=== PATIENT | female | born 1930 | race Caucasian/White ===

== ENCOUNTER 2016-12-19 08:31 | Outpatient (CLI) | payer MEDICARE ==
[2016-12-19 12:27] LABS: #Basophils 0.1 thou/uL (0.0-0.2); #Eosinphils 0.1 thou/uL (0.0-0.7); #Lymphocytes 1.5 thou/uL (1.20-3.40); #Monocytes 0.6 thou/uL (0.11-0.59); #Neutrophils 3.1 thou/uL (1.40-6.50); %Basophils 1.9 % (0.0-1.0); %Eosinophils 2.7 % (0.0-10.0); %Neutrophils 56.4 % (42.0-75.0); Hemoglobin 14.9 g/dL (12.0-16.0); Mean Corpuscular HGB CONC 33.2 g/dL (32.0-36.0); Mean Corpuscular Hemoglobin 30.5 pg (27.0-31.0); Mean Corpuscular Volume 91.9 fl (81.0-99.0); Mean Platelet Volume 8.5 fL (7.4-10.4); Platelet Count 211 thou/uL (130-400); RBC Distribution Width 12.1 % (11.5-14.5); Red Blood Cell (RBC) Count 4.86 mill/uL (4.20-5.40); White Blood Cell (WBC) Count 5.5 thou/uL (4.8-10.8)
[2016-12-19 12:43] LABS: Hemoglobin A1c 4.9 % (4.0-6.0)
[2016-12-19 13:04] LABS: ALT (SGPT) 24 U/L (0-55); AST (SGOT) 27 U/L (5-34); Albumin 3.9 g/dL (3.4-4.8); Alkaline Phosphatase 87 U/L (40-150); Anion Gap 15 mmol/L (10-20); BUN (Urea Nitrogen) 11 mg/dL (9.8-20.1); Bilirubin, Direct 0.4 mg/dL (0.1-0.3); Bilirubin, Total 1.1 mg/dL (0.2-1.2); Calc. Creatinine Clearance 0 mL/min (70-130); Calcium 9.3 mg/dL (7.8-10.44); Carbon Dioxide 24 mmol/L (23-31); Cardiac Risk 3.7 (Less than 4.5); Chloride 98 mmol/L (98-107); Cholesterol 202 mg/dL (< 200 Desired); Estimated GFR-MDRD 64; Glucose 92 mg/dL (83-110); HDL Cholesterol 55 mg/dL (>60 Neg Risk); LDL Cholesterol, Calculated 113 mg/dL; Potassium 5.1 mmol/L (3.5-5.1); Protein, Total 6.2 g/dL (5.8-8.1); Sodium 132 mmol/L (136-145); Triglycerides 168 mg/dL (Less than 150)
== END 2016-12-19 08:32 ==
LOC: NAVSJIPCSP 08:31
PROVIDERS: ATTEND Family Medicine
DX: G30.9 Alzheimer's disease, unspecified (principal); N28.9 Disorder of kidney and ureter, unspecified; I10 Essential (primary) hypertension; M19.90 Unspecified osteoarthritis, unspecified site; N39.3 Stress incontinence (female) (male); G89.29 Other chronic pain; Z79.899 Other long term (current) drug therapy
CPT/HCPCS: 36415; 80048; 80061; 80076; 83036; 84443; 85025

== ENCOUNTER 2017-05-08 09:36 | Outpatient (CLI) | payer MEDICARE ==
[2017-05-08 12:32] LABS: #Basophils 0.1 thou/uL (0.0-0.2); #Eosinphils 0.3 thou/uL (0.0-0.7); #Lymphocytes 1.9 thou/uL (1.20-3.40); #Monocytes 0.7 thou/uL (0.11-0.59); #Neutrophils 4.1 thou/uL (1.40-6.50); %Basophils 1.7 % (0.0-1.0); %Eosinophils 4.9 % (0.0-10.0); %Lymphocytes 25.8 % (21.0-51.0); %Monocytes 9.8 % (0.0-10.0); %Neutrophils 57.8 % (42.0-75.0); Hemoglobin 14.6 g/dL (12.0-16.0); Mean Corpuscular HGB CONC 32.3 g/dL (32.0-36.0); Mean Corpuscular Hemoglobin 29.8 pg (27.0-31.0); Mean Corpuscular Volume 92.2 fl (81.0-99.0); Mean Platelet Volume 8.5 fL (7.4-10.4); Platelet Count 216 thou/uL (130-400); RBC Distribution Width 11.7 % (11.5-14.5); Red Blood Cell (RBC) Count 4.91 mill/uL (4.20-5.40); White Blood Cell (WBC) Count 7.2 thou/uL (4.8-10.8)
[2017-05-08 12:35] LABS: ALT (SGPT) 22 U/L (8-55); AST (SGOT) 24 U/L (5-34); Albumin 3.6 g/dL (3.4-4.8); Alkaline Phosphatase 87 U/L (40-150); Anion Gap 16 mmol/L (10-20); BUN (Urea Nitrogen) 6 mg/dL (9.8-20.1); Bilirubin, Direct 0.4 mg/dL (0.1-0.3); Bilirubin, Total 1.1 mg/dL (0.2-1.2); Calc. Creatinine Clearance 0 mL/min (70-130); Calcium 8.9 mg/dL (7.8-10.44); Carbon Dioxide 22 mmol/L (23-31); Cardiac Risk 3.4 (Less than 4.5); Chloride 96 mmol/L (98-107); Cholesterol 193 mg/dl (< 200 Desired); Estimated GFR-MDRD 63; Glucose 142 mg/dL (83-110); HDL Cholesterol 57 mg/dL (>60 Neg Risk); LDL Cholesterol, Calculated 109 mg/dL; Potassium 4.7 mmol/L (3.5-5.1); Protein, Total 5.9 g/dL (6.0-8.3); Sodium 129 mmol/L (136-145); Triglycerides 136 mg/dL (Less than 150)
[2017-05-08 13:57] LABS: Hemoglobin A1c 4.9 % (4.0-6.0)
== END 2017-05-08 09:37 | disposition home or self-care (01) ==
LOC: NAVSJIPCSP 09:36
PROVIDERS: ATTEND Family Medicine
DX: C44.519 Basal cell carcinoma of skin of other part of trunk (principal); I10 Essential (primary) hypertension; M19.90 Unspecified osteoarthritis, unspecified site; N28.9 Disorder of kidney and ureter, unspecified; G30.9 Alzheimer's disease, unspecified; N39.3 Stress incontinence (female) (male); G89.29 Other chronic pain; Z79.899 Other long term (current) drug therapy
CPT/HCPCS: 36415; 80048; 80061; 80076; 83036; 84443; 85025

== ENCOUNTER 2020-07-13 12:28 | Inpatient (IN) | payer MEDICARE ==
[2020-07-13] MEDS ORDERED: Artificial Tear Sol 15 ML BOT EA EYE PRN (12:55)
[2020-07-13] MEDS ORDERED: Acetaminophen 500 MG TAB PO PRN (12:55)
[2020-07-13] MEDS ORDERED: Calcium Carbonate 500 MG ChewTAB PO PRN (12:55)
[2020-07-13] MEDS ORDERED: Senokot S 8.6-50 MG TAB PO PRN (12:55)
[2020-07-13] MEDS ORDERED: Sodium Chloride 0.65% Nasal 44 ML BOT EA NARE PRN (12:55)
[2020-07-13] MEDS ORDERED: Loperamide HCl 2 MG CAP PO PRN (12:55)
[2020-07-13] MEDS ORDERED: Eucerin (Mineral Oil/Petrolatum,White) 30 gm Jar TOP PRN (12:55)
[2020-07-13] MEDS ORDERED: Cepastat Lozenges 1 LOZ PO PRN (12:55)
[2020-07-13] MEDS: Acetaminophen 500 MG TAB PO PRN (13:18)
[2020-07-13] MEDS ORDERED: hydrALAZINE 20 MG/ML VIAL SLOW IVP PRN (13:37)
[2020-07-13] MEDS ORDERED: FLU VACC QS2020-21(65YR UP)/PF 240 MCG/0.7 ML SYRINGE IM ONE (14:00)
[2020-07-13] MEDS: Carvedilol 3.125 MG TAB PO SCH (17:19)
--- NOTE | 2020-07-13 17:49 | HP ---
HISTORY OF PRESENT ILLNESS: This is an 89-year-old female, who originally presented to [facility] for chief complaint of generalized weakness and fall. Daughter brought her in. The patient does have a history of dementia for past couple of years. The patient was diagnosed there with a UTI and atrial fibrillation. The patient got an echo, which showed atrial fibrillation as well. The patient had UA, which showed leukocytes, wbc's, 2+ bacteria. The patient was started on IV Rocephin. The patient was also noted to have an AMY assumed to be prerenal azotemia. The patient was started on fluids. Overall, the patient's lab work improved from an initial white cell count of 16.9, down to 7.7 over the course of 5 days. However, urine culture was not taken at that time, so susceptibilities could not be determined. 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 As far as her azotemia, the patient's creatinine was originally 1.25 and trended down to 0.64, GFR initially 40 and trended up to 87. This is more like the patient's baseline. Of note, the patient did have a low albumin at 2.9 on previous stay. The patient participated well in physical therapy at previous hospital; however, is requiring additional physical therapy to become strong enough to discharge home safely. The patient was transferred here for PT and OT services. Of note, the patient's blood pressure was elevated up to 188/76 at previous hospital stay and the patient was started on amlodipine 10 mg. REVIEW OF SYSTEMS: Limited due to dementia. However, the patient did report neck and left shoulder pain. Shoulder pain is a posterior pain that was a dull achy pain. Denies any headache, chest pain, shortness of breath, palpitations, nausea, vomiting, abdominal pain, diarrhea, constipation, fever, or chills. MEDICATIONS LIST: 1. Coreg 3.125 orally b.i.d. with meals. 2. Aspirin 81 mg daily. 3. Amlodipine 10 mg daily. 4. Trospium 20 mg b.i.d. 5. Calcium carbonate 500 mg b.i.d. 6. Donepezil 10 mg at bedtime. 7. Solifenacin succinate 10 mg daily. 8. Memantine 10 mg at bedtime. PAST MEDICAL HISTORY: Per daughter at bedside, high blood pressure, dementia, osteoarthritis. PAST SURGICAL HISTORY: Cholecystectomy. FAMILY HISTORY: Noncontributory. SOCIAL HISTORY: Daughter denies that the patient ever smoked tobacco, alcohol abuse, or drug abuse. The patient lives with her family and uses a walker for ambulation. PHYSICAL EXAMINATION: GENERAL: Well-appearing 89-year-old female, in mild distress from shoulder pain. The patient is in no acute respiratory distress. NECK: Tender to palpation on paraspinal muscles on the left side. Trapezius tenderness as well. No point spinal tenderness. No fracture or crepitus felt. No erythema or warmth. No thyromegaly. HEENT: PERRLA. Normocephalic, atraumatic. Nose, no discharge. Pharynx, no erythema or exudate. Mouth, no buccal ulcers. HEART: Regular rate and rhythm. No murmurs, gallops, or rubs. No chest wall tenderness. RESPIRATORY: Clear to auscultation bilaterally. No wheezing. EXTREMITIES: Generalized weakness. Manager [employer] strength is approximately 3/5, but biceps flexion is approximately 2/5. Hip flexion is 2/5. Shoulder is tender to palpation on posterior aspect. No erythema or warmth. No swelling in the joint. No obvious fracture. No crepitus on palpation. SKIN: No obvious bruising seen. NEUROLOGIC: Alert to self only. A and O x1. ASSESSMENT: 1. Resolving acute kidney injury. 2. Resolving azotemia. 3. Weakness secondary to acute kidney injury. 4. Hypertension. 5. Dementia. 6. Overactive bladder. PLAN: 1. Admit for PT and OT services. We will continue to monitor the patient's renal function with CMPs and adjust hydration as needed. We will not start an IV at this time. We will continue to encourage hydration with the patient. We will obtain UA and urine culture here to assess for resolution of urinary tract infection. 2. Continue the patient's amlodipine and follow her blood pressure. 3. Regular diet. 4. Continue the patient's donepezil and memantine. Dementia precaution is in place including frequent reorientation. Avoid any restraints. We will consider adding on Zyprexa as needed for agitation, but will need to discuss risk of all-cause mortality with the patient's family before initiating this treatment. 5. Fall precautions. 6. CBC, CMP to monitor for any changes in lab work. 7. The patient with a regular rhythm at this time. We will consider getting an EKG if the patient could go back into RVR. Continue Coreg 3.125 b.i.d. 8. Case Management consult for discharge planning. 9. The patient was started on antibiotics for UTI on July 07. We will continue this until July 17 for a total of 10 days of treatment. We will start the patient on Bactrim here and follow up with urine culture. Job ID: [id number] [facility]
[2020-07-13 18:38] LABS: Bilirubin Negative (Negative); Blood, Urine Negative (Negative); Clarity Clear (Clear); Glucose, Urine (Dipstick) Negative (Negative); Ketone, Urine Negative (Negative); Leukocyte Negative (Negative); Nitrite Negative (Negative); Protein, Urine (Dipstick) Negative (Neg-Trace); Specific Gravity, Urine 1.025 (1.005-1.030); pH, Urine 6.5 (5.0-9.0)
[2020-07-13 19:08] LABS: Bacteria/HPF None Seen HPF (None Seen); RBC/HPF None Seen HPF (0-3); WBC/HPF None Seen HPF (0-3)
[2020-07-13] MEDS: Famotidine 20 MG TAB PO SCH (20:39)
[2020-07-13] MEDS: Trospium 20 MG TAB PO SCH (20:39)
[2020-07-13] MEDS: Donepezil HCl 10 MG TAB PO SCH (20:39)
[2020-07-13] MEDS: Lisinopril 20 MG TAB PO SCH (20:40)
[2020-07-13] MEDS: Amlodipine 5 MG TAB PO SCH (20:41)
[2020-07-13] MEDS ORDERED: Cephalexin 500 MG CAP PO SCH (21:30)
[2020-07-14 05:56] LABS: ALT (SGPT) 25 U/L (8-55); AST (SGOT) 22 U/L (5-34); Albumin 2.6 g/dL (3.4-4.8); Alkaline Phosphatase 81 U/L (40-110); Anion Gap 11 mmol/L (10-20); BUN (Urea Nitrogen) 15 mg/dL (9.8-20.1); Band 3 % (5-11); Calc. Creatinine Clearance 93 mL/min (70-130); Calcium 8.2 mg/dL (7.8-10.44); Carbon Dioxide 24 mmol/L (23-31); Chloride 102 mmol/L (98-107); Eosinophils 1 % (0-10); Globulin 2.4 g/dL (2.4-3.5); Glucose 94 mg/dL (83-110); Lymphocytes 20 % (21-51); MDiff Complete? YES; Mean Corpuscular HGB CONC 33.4 g/dL (32.0-36.0); Mean Corpuscular Hemoglobin 31.1 pg (27.0-31.0); Mean Corpuscular Volume 93.3 fL (78.0-98.0); Mean Platelet Volume 8.6 fL (7.4-10.4); Metamyelocyte 4 % (0-0); Monocytes 4 % (0-10); Neutrophil 68 % (42-75); Platelet Count 165 thou/uL (130-400); Platelet Morphology Comment Appears Adequate; Potassium 3.5 mmol/L (3.5-5.1); RBC Distribution Width 11.6 % (11.5-14.5); RBC Morphology Normal; Red Blood Cell (RBC) Count 4.49 mill/uL (4.20-5.40); Sodium 133 mmol/L (136-145); White Blood Cell (WBC) Count 8.2 thou/uL (4.8-10.8)
[2020-07-14] MEDS: Famotidine 20 MG TAB PO SCH ×2 (08:06→20:47)
[2020-07-14] MEDS: Cephalexin 500 MG CAP PO SCH ×2 (08:07→20:46)
[2020-07-14] MEDS: Amlodipine 5 MG TAB PO SCH ×2 (08:07→20:46)
[2020-07-14] MEDS: Aspirin 81 mg Enteric Coated Tablet PO SCH (08:07)
[2020-07-14] MEDS: Lisinopril 20 MG TAB PO SCH ×2 (08:07→20:46)
[2020-07-14] MEDS: Trospium 20 MG TAB PO SCH ×2 (08:07→20:47)
[2020-07-14] MEDS: Carvedilol 3.125 MG TAB PO SCH ×2 (08:10→17:22)
[2020-07-14] MEDS ORDERED: Non-Formulary Item 1 EACH (Solifenacin Succinate [Vesicare] 10 MG Tab) PO SCH (09:00)
[2020-07-14] MEDS: Acetaminophen 500 MG TAB PO PRN (09:57)
--- NOTE | 2020-07-14 14:24 | PRG ---
DATE OF SERVICE: 07/14/2020 SUBJECTIVE: An 89-year-old female, who originally presented to [facility] for a chief complaint of generalized weakness and fall. Patient was diagnosed UTI. The patient also had AMY. She recovered from this, but still required PT/OT services. Patient was transferred to [facility] for continued PT and OT services. Patient is doing well today. However, nursing staff has noticed a rash under her right breast and her groin as well as an area of skin shear on her back approximately 1 cm in diameter. The patient denies any pain in her neck or her shoulder. She is lying in bed comfortably in no acute distress. REVIEW OF SYSTEMS: Limited due to her dementia. However, patient denies any fever, cough, congestion, chest pain, abdominal pain, nausea, vomiting, diarrhea. OBJECTIVE: VITAL SINGS: Pulse rate 56, blood pressure 157/83, oxygen saturation 96% on room air, and temperature 98.4. GENERAL: Well appearing, obese, 89-year-old female, in no acute distress, lying in bed. HEENT: PERRLA. Normocephalic and atraumatic. HEART: Regular rate and rhythm. No murmurs, gallops, or rubs. No chest pain. No chest wall tenderness. RESPIRATORY: Clear to auscultation bilaterally. No wheezes. SKIN: Erythematous patch seen under right breast and in the intertriginous folds. Electrical Assembly Supervisor was present during exam on patient's back on the right side in an approximately 1 cm abrasion, well healing. No bleeding, no erythema, no discharge. On the right heel is similar abrasion with no bleeding, erythema, or discharge. Alert to self only. LABORATORY DATA: Labs today, white cell 8.2, hemoglobin 14.9, hematocrit 42, platelets are 165. Sodium 133, potassium 3.5, BUN 15, creatinine 0.67, GFR of 83, glucose 94, calcium 8.2, AST 22, ALT 25, albumin low at 2.6. Urinalysis unremarkable. Urine wbc's none, leukocyte esterase none, bacteria none, blood none, nitrites none. ASSESSMENT: 1. Resolving acute kidney injury. 2. Resolving azotemia. 3. Weakness secondary to acute kidney injury and urinary tract infection. 4. Hypertension. 5. Dementia. 6. Overactive bladder. 7. Intertrigo. PLAN: 1. Continue PT and OT services. 2. Start nystatin powder for fungal infection under breast. 3. Continue patient's oral antihypertensives. Continue to monitor blood pressure. Continue p.r.n. antihypertensives. 4. Regular diet. 5. Dementia precautions. 6. Fall precautions. 7. Continue routine lab work. 8. Continue to monitor pulse for RVR. 9. Continue discharge planning with home sitter versus longterm. 10. Continue antibiotics for urinary tract infection at this time for completion, we will continue with the patient's Keflex. 11. Wound care consult for abrasion on back and foot. Job ID: [id number] [facility]
[2020-07-14] MEDS: Nystatin Powder 15 GM BOT TOP PRN (14:56)
[2020-07-14] MEDS: Donepezil HCl 10 MG TAB PO SCH (20:46)
[2020-07-15] MEDS: Aspirin 81 mg Enteric Coated Tablet PO SCH (08:03)
[2020-07-15] MEDS: Famotidine 20 MG TAB PO SCH ×2 (08:03→20:35)
[2020-07-15] MEDS: Cephalexin 500 MG CAP PO SCH ×2 (08:03→20:35)
[2020-07-15] MEDS: Amlodipine 5 MG TAB PO SCH ×2 (08:04→20:35)
[2020-07-15] MEDS: Trospium 20 MG TAB PO SCH ×2 (08:04→20:35)
[2020-07-15] MEDS: Lisinopril 20 MG TAB PO SCH ×2 (08:05→20:35)
[2020-07-15] MEDS: Carvedilol 3.125 MG TAB PO SCH ×2 (08:06→17:16)
[2020-07-15] MEDS: Acetaminophen 500 MG TAB PO PRN (09:01)
--- NOTE | 2020-07-15 14:31 | PRG ---
DATE OF SERVICE: 07/15/2020 SUBJECTIVE: This is an 89-year-old female who recently presented to [facility] for chief complaint of generalized weakness and fall. Patient was diagnosed with UTI and also AMY. Patient recovered from this but still required PT and OT services and was transferred here to [facility] for continued services. The patient doing well today. Nursing staff has not noticed any new rashes on the patient. Wound Care came and assessed the patient and gave orders for routine wound care that can be performed by nursing staff. The patient denies any pain in her neck or her shoulder today. She is lying comfortably in bed, in no acute distress. Daughter is at bedside. REVIEW OF SYSTEMS: Limited due to her dementia; however, patient denies any fever, cough, congestion, chest pain, abdominal pain, nausea, vomiting, diarrhea. OBJECTIVE: VITAL SIGNS: Temperature 97.6, pulse 56, blood pressure 142/67 to 166/74, respiratory rate 18, O2 96 on room air. LABORATORY DATA: No new today. Urine culture, no growth today x12 hours. ASSESSMENT: 1. Resolving acute kidney injury. 2. Resolving azotemia. 3. Weakness secondary to acute kidney injury and urinary tract infection. 4. Hypertension. 5. Dementia. 6. Overactive bladder. 7. Intertrigo. 8. Urinary tract infection, resolved. PLAN: 1. Continue PT and OT services. 2. Continue nystatin powder. 3. We will increase patient's Norvasc to 10 b.i.d. due to her elevated blood pressure today. Continue p.r.n. antihypertensives. 4. Continue regular diet. 5. The patient is at a high risk for falls, we will continue SCDs. The patient also had a history of AFib in the hospital; however, HAS-BLED 2 so will hold off on anticoagulation due to fall risk and dementia history. 6. Fall precautions. 7. Continue routine lab work. 8. Continue discharge planning: home sitter versus longterm. 9. Continue antibiotics for UTI. 10. Continue routine wound care for back and foot. Job ID: [id number] [facility]
[2020-07-15] MEDS: Donepezil HCl 10 MG TAB PO SCH (20:34)
--- NOTE | 2020-07-16 09:02 | PRG ---
DATE OF SERVICE: 07/16/2020 SUBJECTIVE: The patient doing well. Nursing has no complaints. The patient has no complaints this morning. The patient is participating well in physical therapy. REVIEW OF SYSTEMS: Limited due to her dementia; however, the patient denies any fever, cough, congestion, chest pain, abdominal pain, nausea, vomiting, diarrhea, neck pain, or shoulder pain. OBJECTIVE: VITAL SIGNS: Temperature 96.5, pulse 55, blood pressure 165/74, respiratory rate 20, and 96% on room air. GENERAL: Well-appearing obese female, lying in bed, in no acute distress. HEENT: Pharynx clear. Mouth, no buccal ulcers. HEART: Regular rate and rhythm. No murmurs, gallops, or rubs. RESPIRATORY: Clear to auscultation bilaterally. No wheezes. EXTREMITIES: Continues to be weak; however, is improving. SKIN: Previous intertriginous rash improving as well as rash under her right breast, improving. LABORATORY DATA: No new labs today. Urine culture, no growth today x36. ASSESSMENT: 1. Resolved acute kidney injury. 2. Resolved azotemia. 3. Weakness secondary to acute kidney injury and urinary tract infection. 4. Urinary tract infection, resolved. 5. Hypertension. 6. Dementia. 7. Overactive bladder. 8. Intertrigo. PLAN: 1. Continue PT and OT Services. 2. Continue nystatin powder. 3. The patient's BP is still elevated. Therefore, we will continue current medications and add on spironolactone 25 mg b.i.d. and continue p.r.n. antihypertensives. 4. The patient is a high risk for falls. We will continue SCDs. The patient has a HAS-BLED score of 2, so we will hold off on anticoagulation at this time. We will need to discuss with the patient and family as well. 5. Fall precautions. 6. Continue routine lab work with CBC and BMP in the morning. 7. Continue discharge planning. 8. Continue antibiotics for UTI. We will consider stopping this as we have no growth today x36 hours. Job ID: [id number]
[2020-07-16] MEDS: Famotidine 20 MG TAB PO SCH ×2 (09:03→20:08)
[2020-07-16] MEDS: Lisinopril 20 MG TAB PO SCH ×2 (09:03→20:09)
[2020-07-16] MEDS: Carvedilol 3.125 MG TAB PO SCH ×2 (09:03→17:30)
[2020-07-16] MEDS: Amlodipine 5 MG TAB PO SCH ×2 (09:03→20:08)
[2020-07-16] MEDS: Aspirin 81 mg Enteric Coated Tablet PO SCH (09:04)
[2020-07-16] MEDS: Trospium 20 MG TAB PO SCH ×2 (09:04→20:09)
[2020-07-16] MEDS: Cephalexin 500 MG CAP PO SCH ×2 (09:04→20:08)
[2020-07-16] MEDS ORDERED: Spironolactone 25 MG TAB PO SCH (09:15)
[2020-07-16] MEDS: Spironolactone 25 MG TAB PO SCH ×2 (09:19→17:30)
[2020-07-16] MEDS: Donepezil HCl 10 MG TAB PO SCH (20:08)
[2020-07-16] MEDS: Acetaminophen 500 MG TAB PO PRN (20:15)
[2020-07-17 07:37] LABS: #Basophils 0.1 thou/uL (0.0-0.2); #Eosinphils 0.3 thou/uL (0.0-0.7); #Lymphocytes 1.8 thou/uL (1.20-3.40); #Monocytes 0.8 thou/uL (0.11-0.59); #Neutrophils 2.8 thou/uL (1.40-6.50); %Basophils 1.6 % (0.0-1.0); %Lymphocytes 30.5 % (21.0-51.0); %Monocytes 14.1 % (0.0-10.0); %Neutrophils 47.8 % (42.0-75.0); Hemoglobin 13.8 g/dL (12.0-16.0); Mean Corpuscular HGB CONC 33.4 g/dL (32.0-36.0); Mean Corpuscular Hemoglobin 30.9 pg (27.0-31.0); Mean Corpuscular Volume 92.5 fL (78.0-98.0); Mean Platelet Volume 7.7 fL (7.4-10.4); Platelet Count 260 thou/uL (130-400); RBC Distribution Width 11.4 % (11.5-14.5); Red Blood Cell (RBC) Count 4.47 mill/uL (4.20-5.40); White Blood Cell (WBC) Count 5.8 thou/uL (4.8-10.8)
[2020-07-17 08:33] LABS: Anion Gap 13 mmol/L (10-20); BUN (Urea Nitrogen) 14 mg/dL (9.8-20.1); Calc. Creatinine Clearance 84 mL/min (70-130); Calcium 8.4 mg/dL (7.8-10.44); Carbon Dioxide 22 mmol/L (23-31); Chloride 105 mmol/L (98-107); Sodium 136 mmol/L (136-145)
[2020-07-17] MEDS: Trospium 20 MG TAB PO SCH ×2 (08:44→21:10)
[2020-07-17] MEDS: Cephalexin 500 MG CAP PO SCH ×2 (08:44→21:10)
[2020-07-17] MEDS: Aspirin 81 mg Enteric Coated Tablet PO SCH (08:44)
[2020-07-17] MEDS: Spironolactone 25 MG TAB PO SCH ×2 (08:44→18:11)
[2020-07-17] MEDS: Famotidine 20 MG TAB PO SCH ×2 (08:45→21:09)
[2020-07-17] MEDS: Carvedilol 3.125 MG TAB PO SCH ×2 (08:45→18:11)
[2020-07-17] MEDS: Amlodipine 5 MG TAB PO SCH ×2 (08:45→21:09)
[2020-07-17] MEDS: Lisinopril 20 MG TAB PO SCH ×2 (08:45→21:10)
[2020-07-17 08:48] LABS: Glucose 87 mg/dL (83-110)
--- NOTE | 2020-07-17 09:43 | PRG ---
DATE OF SERVICE: 07/17/2020 SUBJECTIVE: The patient is doing well today. No concerns from the nursing staff per patient. REVIEW OF SYSTEMS: Limited due to dementia, but denies any headache, chest pain, abdominal pain, nausea, vomiting, diarrhea, dysuria. OBJECTIVE: VITAL SIGNS: Temperature 98, pulse 57, blood pressure 149/69, respiratory rate 20, O2 saturations 98% on room air. GENERAL: Well-appearing, obese 89-year-old female in no acute distress, lying in bed. HEART: Regular rate and rhythm. No murmurs, gallops, or rubs. RESPIRATORY: Rate clear to auscultation bilaterally. No wheezes. ABDOMEN: Soft, nontender to palpation. Bowel sounds present in all four quadrants. EXTREMITIES: Generalized weakness, but improving from previous. LABORATORY DATA: WBC 5.8, hemoglobin 13.8, hematocrit 41.4, platelets 260. Sodium 136, potassium 4.0, chloride 105, CO2 of 22, BUN 14, creatinine 0.74, GFR 74, glucose 87, calcium 8.4. ASSESSMENT: 1. Weakness secondary to urinary tract infection, improving. 2. Urinary tract infection, resolved. 3. Hypertension. 4. Dementia. 5. Overactive bladder. 6. Intertrigo. PLAN: 1. Continue PT and OT services. 2. Continue nystatin powder. 3. BP better controlled with spironolactone. We will continue this. 4. The patient's HAS-BLED score of 2, we will hold off on anticoagulation at this time. However, we will need to discuss further about patient's anticoagulation with family. 5. Fall precautions. 6. Continue routine lab work. 7. We will discontinue antibiotics as patient is no growth to date and urinalysis is unremarkable. Job ID: [id number]
[2020-07-17] MEDS: Donepezil HCl 10 MG TAB PO SCH (21:10)
[2020-07-17] MEDS: Acetaminophen 500 MG TAB PO PRN (21:11)
[2020-07-18] MEDS: Famotidine 20 MG TAB PO SCH ×2 (08:40→20:26)
[2020-07-18] MEDS: Spironolactone 25 MG TAB PO SCH ×2 (08:40→17:39)
[2020-07-18] MEDS: Aspirin 81 mg Enteric Coated Tablet PO SCH (08:40)
[2020-07-18] MEDS: Lisinopril 20 MG TAB PO SCH ×2 (08:41→20:27)
[2020-07-18] MEDS: Trospium 20 MG TAB PO SCH ×2 (08:41→20:26)
[2020-07-18] MEDS: Amlodipine 5 MG TAB PO SCH ×2 (08:41→20:25)
[2020-07-18] MEDS: Carvedilol 3.125 MG TAB PO SCH ×2 (08:41→17:39)
[2020-07-18] MEDS: Nystatin Powder 15 GM BOT TOP PRN (08:42)
--- NOTE | 2020-07-18 09:57 | PRG ---
DATE OF SERVICE: 07/18/2020 SUBJECTIVE: Ms. Joy is a very pleasant 89-year-old white female who initially was admitted with urinary tract infection. She was treated, was now found to be extremely weak. She was transferred to [facility] on 07/13/2020. On Saturday, she was able to walk 5 feet, which is a significant improvement. She also needs some assist from transfers to the toilet and wheelchair. OBJECTIVE: VITAL SIGNS: Today reveal blood pressure slightly elevated at 167/69, pulse 60 to 62, respirations 18, O2 saturation 96% to 98% on room air, and T-max 97.5. GENERAL: This is a well-developed, well-nourished, slightly obese white female, in no apparent distress at this time. She does remember me as Dr. Villasenor, but otherwise her short-term memory is terrible. HEENT: Normocephalic and nontraumatic cranium. Pupils equally round and reactive. Extraocular movements intact. Nose and throat are dry. NECK: Supple without masses, nodes, or bruits. CHEST: Clear to auscultation. No rales, rhonchi, wheezes, or cough is noted. HEART: Regular rate and rhythm without murmurs, gallops, or rubs. ABDOMEN: Obese, soft, and nontender. Normal bowel sounds are noted in all 4 quadrants. No rebound or guarding is noted. : Deferred. EXTREMITIES: Generalized weakness, but seems to be slowly improving. LABORATORY DATA: On 07/17, which was yesterday, white count of 5800, hemoglobin 13.8, Hematocrit 41.4, and platelet count 260,000. Sodium 136, potassium 4.0, BUN 14, creatinine 0.74, and GFR is 74. Glucose is noted to be 87. The patient's albumin is low at 2.6. ASSESSMENT: 1. Urinary tract infection, resolved. 2. Generalized weakness secondary to urinary tract infection. 3. Hypertension. 4. Hyperlipidemia. 5. Stress incontinence. 6. Memory deficit. 7. Arthritis. 8. Chronic pain. 9. Alzheimer's dementia. PLAN: 1. Continue spironolactone. 2. The patient has finished her antibiotics for UTI, which is resolved. 3. The patient's HAS-BLED score of 2. 4. We will continue off anticoagulation at this time. 5. Fall precautions. 6. Continue routine lab work once or twice per week. 7. Continue physical therapy and occupational therapy. 8. Stress ulcer prophylaxis. 9. Decubitus precautions. Job ID: [id number]
[2020-07-18] MEDS: Donepezil HCl 10 MG TAB PO SCH (20:27)
[2020-07-19] MEDS: Aspirin 81 mg Enteric Coated Tablet PO SCH (07:54)
[2020-07-19] MEDS: Trospium 20 MG TAB PO SCH ×2 (07:54→20:14)
[2020-07-19] MEDS: Amlodipine 5 MG TAB PO SCH ×2 (07:54→20:14)
[2020-07-19] MEDS: Spironolactone 25 MG TAB PO SCH ×2 (07:55→17:12)
[2020-07-19] MEDS: Lisinopril 20 MG TAB PO SCH ×2 (07:55→20:14)
[2020-07-19] MEDS: Famotidine 20 MG TAB PO SCH ×2 (07:56→20:15)
[2020-07-19] MEDS: Carvedilol 3.125 MG TAB PO SCH ×2 (07:56→17:11)
--- NOTE | 2020-07-19 10:14 | PRG ---
DATE OF SERVICE: 07/19/2020 SUBJECTIVE: Ms. Joy is a well-developed, well-nourished 89-year-old white female. She was found to be very weak and confused and was seen in the emergency room, where she was found to have a urinary tract infection. She was stabilized and transferred to [facility] on 07/13/2020 because she was so weak. She is still on physical therapy, occupational therapy, and however stay here, she could only stand and walk a couple of feet. Yesterday, she walked 12 feet, then 4 feet, then 7 feet. She is able to turn over in bed and doing much better. She is standing with minimal to moderate assist. She continues to gradually get better. OBJECTIVE: VITAL SIGNS: Today reveal blood pressure 147/65, pulse 54 to 55, respirations 20, O2 saturation 98% on room air, and T-max 98.4. GENERAL: This is a well-developed, well-nourished, pleasant 89-year-old white female, in no apparent distress at this time. HEENT: Reveals normocephalic and nontraumatic cranium. Pupils equally round and reactive. Extraocular movements intact. Nose and throat are slightly dry. NECK: Supple without masses, nodes, or bruits. CHEST: Clear to auscultation. No rales, rhonchi, wheezes, or cough is heard. HEART: Reveals a regular rate and rhythm without murmurs, gallops, or rubs. ABDOMEN: Obese, soft, and nontender. Normal bowel sounds are noted. No rebound or guarding is noted. : Deferred. EXTREMITIES: Reveal no clubbing, cyanosis, or edema. She has generalized weakness, but she does have arthritis pain. ASSESSMENT: 1. Urinary tract infection, resolved. 2. Generalized weakness secondary to urinary tract infection. 3. Hypertension. 4. Hyperlipidemia. 5. Stress incontinence. 6. Memory deficit. 7. Arthritis. 8. Chronic pain. 9. Alzheimer dementia. PLAN: 1. Continue present medications. 2. The patient has finished antibiotics. 3. The patient has a HAS-BLED score of 2. 4. Continue anticoagulation at this time. 5. Fall precautions. 6. Continue routine lab work. 7. Continue physical therapy and occupational therapy. 8. Continue stress ulcer prophylaxis. 9. Continue decubitus precautions. Job ID: [id number]
[2020-07-19] MEDS: Donepezil HCl 10 MG TAB PO SCH (20:15)
[2020-07-20] MEDS: Amlodipine 5 MG TAB PO SCH ×2 (08:42→20:44)
[2020-07-20] MEDS: Lisinopril 20 MG TAB PO SCH ×2 (08:42→20:45)
[2020-07-20] MEDS: Famotidine 20 MG TAB PO SCH ×2 (08:43→20:45)
[2020-07-20] MEDS: Carvedilol 3.125 MG TAB PO SCH ×2 (08:43→16:27)
[2020-07-20] MEDS: Trospium 20 MG TAB PO SCH ×2 (08:43→20:46)
[2020-07-20] MEDS: Spironolactone 25 MG TAB PO SCH ×2 (08:43→16:27)
[2020-07-20] MEDS: Aspirin 81 mg Enteric Coated Tablet PO SCH (08:43)
--- NOTE | 2020-07-20 14:34 | PRG ---
DATE OF SERVICE: 07/20/2020 SUBJECTIVE: Ms. Joy is a well-developed, well-nourished, very pleasant, 89-year-old white female, patient of mine for many years. Unfortunately, she got very weak and confused, was seen in the emergency room, where she was found to have urinary tract infection. She was stabilized and admitted to [facility] bed [facility] for physical therapy and occupational therapy. She has been very very weak, was unable to barely stand, but now she walked 27 feet and 10 more feet. She is much more able to get up off the toilet, but needs significant assistance still getting out of bed because of her legs. Otherwise, she states she is doing well. She is eating and drinking well. She has no concerns or complaints today. OBJECTIVE: VITAL SIGNS: Today reveal blood pressure this morning 126/70, pulse 62, respirations 18, O2 99% on room air, T-max 97.4. GENERAL: On physical exam, this is a well-developed, well-nourished, very pleasant and pleasantly demented white female, in no apparent distress at this time. HEENT: Normocephalic and nontraumatic cranium. Pupils are equal, round, and reactive. Extraocular movements are intact. Nose and throat are moist. NECK: Supple without masses, nodes, or bruits. CHEST: Clear to auscultation. No rales, rhonchi, wheezes, or cough is heard. HEART: Reveals a regular rate and rhythm without murmurs, gallops, or rubs. ABDOMEN: Obese, soft, and nontender. No rebound or guarding is noted. Normal bowel sounds are noted. : Deferred. EXTREMITIES: Reveal no clubbing or cyanosis with trace edema. She has generalized weakness, but is moving much better and turning over in bed much better. She is walking a little bit with her walker. ASSESSMENT: 1. Urinary tract infection, resolved. 2. Generalized weakness secondary to urinary tract infection. 3. Hypertension. 4. Hyperlipidemia. 5. Stress incontinence. 6. Memory deficit. 7. Arthritis. 8. Chronic pain. 9. Alzheimer dementia. PLAN: 1. Continue present medications. 2. The patient has finished her antibiotics. 3. The patient has a HAS-BLED score of 2. 4. Continue anticoagulation at this time. 5. Fall precautions. 6. Continue routine lab work. 7. Stress ulcer prophylaxis. 8. Decubitus precautions. 9. Continue physical therapy and occupational therapy. 10. Dr. Brower is on-call this weekend. Job ID: [id number]
[2020-07-20] MEDS: Donepezil HCl 10 MG TAB PO SCH (20:45)
[2020-07-21] MEDS: Spironolactone 25 MG TAB PO SCH ×2 (08:07→17:23)
[2020-07-21] MEDS: Carvedilol 3.125 MG TAB PO SCH ×2 (08:07→17:23)
[2020-07-21] MEDS: Lisinopril 20 MG TAB PO SCH ×2 (08:08→21:33)
[2020-07-21] MEDS: Aspirin 81 mg Enteric Coated Tablet PO SCH (08:08)
[2020-07-21] MEDS: Famotidine 20 MG TAB PO SCH ×2 (08:08→21:32)
[2020-07-21] MEDS: Amlodipine 5 MG TAB PO SCH ×2 (08:08→21:32)
[2020-07-21] MEDS: Trospium 20 MG TAB PO SCH ×2 (08:09→21:33)
--- NOTE | 2020-07-21 16:28 | PRG ---
DATE OF SERVICE: 07/21/2020 SUBJECTIVE: Ms. Joy is resting in bed and denies any concerns. OBJECTIVE: VITAL SIGNS: She is afebrile. Heart rate 56, respirations 18, oxygen saturation 97% on room air, blood pressure is 186/79. CARDIOVASCULAR SYSTEM: S1 and S2 plus. RESPIRATORY SYSTEM: Normal vesicular breath sounds. ABDOMEN: Soft and nontender. Bowel sounds heard in all quadrants. EXTREMITIES: Without cyanosis or clubbing. IMPRESSION: 1. Resolved urinary tract infection. 2. Deconditioning. 3. Hypertension. 4. Dyslipidemia. 5. Osteoarthritis. 6. Dementia. PLAN: 1. Continue current medications. 2. Physical therapy. 3. Nutritional support. 4. Monitor blood pressure and adjust medications. 5. Decubitus precautions. 6. Stress ulcer prophylaxis. 7. Routine laboratory values. Job ID: [id number]
[2020-07-21] MEDS: Donepezil HCl 10 MG TAB PO SCH (21:32)
[2020-07-22] MEDS: Aspirin 81 mg Enteric Coated Tablet PO SCH (08:36)
[2020-07-22] MEDS: Famotidine 20 MG TAB PO SCH ×2 (08:36→20:17)
[2020-07-22] MEDS: Carvedilol 3.125 MG TAB PO SCH ×2 (08:37→17:05)
[2020-07-22] MEDS: Amlodipine 5 MG TAB PO SCH ×2 (08:37→20:17)
[2020-07-22] MEDS: Trospium 20 MG TAB PO SCH ×2 (08:37→20:17)
[2020-07-22] MEDS: Lisinopril 20 MG TAB PO SCH ×2 (08:37→20:17)
[2020-07-22] MEDS: Nystatin Powder 15 GM BOT TOP PRN (08:43)
[2020-07-22] MEDS: Spironolactone 25 MG TAB PO SCH ×2 (08:44→17:05)
--- NOTE | 2020-07-22 15:35 | PRG ---
DATE OF SERVICE: 07/22/2020 SUBJECTIVE: Ms. Joy is doing the same, resting in bed, denies any concerns. OBJECTIVE: VITAL SIGNS: She is afebrile. Heart rate is 55, respirations are 20, oxygen saturation 99% on room air, and blood pressure 142/65. CARDIOVASCULAR SYSTEM: S1 and S2 plus. RESPIRATORY SYSTEM: Normal vesicular breath sounds. ABDOMEN: Soft and nontender. Bowel sounds heard in all quadrants. Obese. EXTREMITIES: Without cyanosis or clubbing. CENTRAL NERVOUS SYSTEM: Generalized weakness. IMPRESSION: 1. Hypertension. 2. Dyslipidemia. 3. Osteoarthritis. 4. Dementia. 5. Deconditioning. PLAN: 1. Continue current medications. 2. Heart healthy diet. 3. Monitor blood pressure and adjust medications as needed. Continue physical therapy. 4. Stress ulcer prophylaxis with PlexiPulses. 5. Decubitus precaution. 6. Stress ulcer prophylaxis. 7. Routine laboratory values. Job ID: [id number]
[2020-07-22] MEDS: Donepezil HCl 10 MG TAB PO SCH (20:17)
[2020-07-23] MEDS: Spironolactone 25 MG TAB PO SCH ×2 (08:52→17:02)
[2020-07-23] MEDS: Carvedilol 3.125 MG TAB PO SCH ×2 (08:52→17:02)
[2020-07-23] MEDS: Famotidine 20 MG TAB PO SCH ×2 (08:53→20:26)
[2020-07-23] MEDS: Amlodipine 5 MG TAB PO SCH ×2 (08:53→20:26)
[2020-07-23] MEDS: Aspirin 81 mg Enteric Coated Tablet PO SCH (08:54)
[2020-07-23] MEDS: Trospium 20 MG TAB PO SCH ×2 (08:55→20:27)
[2020-07-23] MEDS: Lisinopril 20 MG TAB PO SCH ×2 (08:55→20:27)
[2020-07-23] MEDS: Acetaminophen 500 MG TAB PO PRN (10:18)
--- NOTE | 2020-07-23 16:46 | PRG ---
DATE OF SERVICE: 07/23/2020 SUBJECTIVE: Ms. Joy is doing well, resting comfortably. Denies any concerns. OBJECTIVE: VITAL SIGNS: She is afebrile. Heart rate 58, respirations 18, oxygen saturation 99% on room air, blood pressure is 154/69. CARDIOVASCULAR: S1 and S2 plus. RESPIRATORY: Normal vesicular breath sounds. ABDOMEN: Soft, nontender. Bowel sounds heard in all quadrants. EXTREMITIES: Without cyanosis or clubbing. Peripheral pulses are palpable. CENTRAL NERVOUS SYSTEM: Grossly nonfocal. IMPRESSION: 1. Hypertension, fluctuating control. 2. Dyslipidemia. 3. Osteoarthritis. 4. Dementia. 5. Deconditioning. PLAN: 1. Continue current medications. 2. Heart healthy diet. 3. Monitor blood pressure and adjust medications. 4. DVT prophylaxis with PlexiPulses. 5. Decubitus precautions. 6. Stress ulcer prophylaxis. 7. Physical therapy. 8. Routine laboratory values. Job ID: [id number]
[2020-07-23] MEDS: Donepezil HCl 10 MG TAB PO SCH (20:27)
[2020-07-24] MEDS: Amlodipine 5 MG TAB PO SCH ×2 (08:36→20:45)
[2020-07-24] MEDS: Trospium 20 MG TAB PO SCH ×2 (08:36→20:43)
[2020-07-24] MEDS: Aspirin 81 mg Enteric Coated Tablet PO SCH (08:36)
[2020-07-24] MEDS: Spironolactone 25 MG TAB PO SCH ×2 (08:37→16:45)
[2020-07-24] MEDS: Famotidine 20 MG TAB PO SCH ×2 (08:37→20:43)
[2020-07-24] MEDS: Lisinopril 20 MG TAB PO SCH ×2 (08:37→20:43)
[2020-07-24] MEDS: Carvedilol 3.125 MG TAB PO SCH ×2 (08:38→16:45)
--- NOTE | 2020-07-24 15:04 | PRG ---
DATE OF SERVICE: 07/24/2020 SUBJECTIVE: Ms. Joy is doing well, resting comfortably. Denies any complaints. OBJECTIVE: VITAL SIGNS: She is afebrile. Heart rate 55, respirations 18, oxygen saturation 98% on room air, blood pressure 149/66. CARDIOVASCULAR: S1-S2 plus. RESPIRATORY: Normal vesicular breath sounds. ABDOMEN: Soft, obese, nontender. Bowel sounds heard in all quadrants. EXTREMITIES: Without cyanosis or clubbing. CENTRAL NERVOUS SYSTEM: Generalized weakness, otherwise nonfocal. IMPRESSION: 1. Hypertension. 2. Dyslipidemia. 3. Osteoarthritis. 4. Dementia. 5. Deconditioning. PLAN: 1. Continue current medications. 2. Nutritional support. 3. DVT prophylaxis. 4. Decubitus precautions. 5. Stress ulcer prophylaxis. 6. Physical therapy. 7. Discharge planning. 8. Dr. Jacklyn cisse. Job ID: [id number]
[2020-07-24] MEDS: Donepezil HCl 10 MG TAB PO SCH (20:43)
[2020-07-25] MEDS ORDERED: Amlodipine 5 MG TAB ONE (08:49)
[2020-07-25] MEDS: Aspirin 81 mg Enteric Coated Tablet PO SCH (08:52)
[2020-07-25] MEDS: Carvedilol 3.125 MG TAB PO SCH ×2 (08:52→16:57)
[2020-07-25] MEDS: Famotidine 20 MG TAB PO SCH ×2 (08:52→20:37)
[2020-07-25] MEDS: Trospium 20 MG TAB PO SCH ×2 (08:52→20:37)
[2020-07-25] MEDS: Spironolactone 25 MG TAB PO SCH ×2 (08:53→16:57)
[2020-07-25] MEDS: Lisinopril 20 MG TAB PO SCH ×2 (08:53→20:36)
[2020-07-25] MEDS: Amlodipine 5 MG TAB PO SCH ×2 (08:53→20:36)
[2020-07-25 14:56] LABS: Bilirubin Negative (Negative); Blood, Urine Negative (Negative); Clarity Clear (Clear); Glucose, Urine (Dipstick) Negative (Negative); Ketone, Urine Negative (Negative); Leukocyte Negative (Negative); Nitrite Negative (Negative); Protein, Urine (Dipstick) Negative (Neg-Trace); Specific Gravity, Urine 1.015 (1.005-1.030); pH, Urine 6.5 (5.0-9.0)
[2020-07-25 15:13] LABS: Bacteria/HPF None Seen HPF (None Seen); RBC/HPF 0-3 HPF (0-3); Squamous Epithelial 0-3 HPF (0-3); WBC/HPF None Seen HPF (0-3)
[2020-07-25] MEDS: Donepezil HCl 10 MG TAB PO SCH (20:37)
[2020-07-26 05:41] LABS: #Basophils 0.1 thou/uL (0.0-0.2); #Eosinphils 0.3 thou/uL (0.0-0.7); #Lymphocytes 2.8 thou/uL (1.20-3.40); #Monocytes 1.2 thou/uL (0.11-0.59); #Neutrophils 3.9 thou/uL (1.40-6.50); %Basophils 1.5 % (0.0-1.0); %Eosinophils 3.9 % (0.0-10.0); %Lymphocytes 33.4 % (21.0-51.0); %Monocytes 13.9 % (0.0-10.0); %Neutrophils 47.3 % (42.0-75.0); Hemoglobin 14.9 g/dL (12.0-16.0); Mean Corpuscular HGB CONC 33.5 g/dL (32.0-36.0); Mean Corpuscular Hemoglobin 31.3 pg (27.0-31.0); Mean Corpuscular Volume 93.5 fL (78.0-98.0); Mean Platelet Volume 8.7 fL (7.4-10.4); Platelet Count 203 thou/uL (130-400); Red Blood Cell (RBC) Count 4.75 mill/uL (4.20-5.40); White Blood Cell (WBC) Count 8.3 thou/uL (4.8-10.8)
[2020-07-26 05:56] LABS: ALT (SGPT) 30 U/L (8-55); AST (SGOT) 27 U/L (5-34); Alkaline Phosphatase 106 U/L (40-110); Anion Gap 14 mmol/L (10-20); BUN (Urea Nitrogen) 22 mg/dL (9.8-20.1); Bilirubin, Total 0.8 mg/dL (0.2-1.2); Calc. Creatinine Clearance 69 mL/min (70-130); Calcium 8.8 mg/dL (7.8-10.44); Carbon Dioxide 18 mmol/L (23-31); Chloride 105 mmol/L (98-107); Globulin 2.4 g/dL (2.4-3.5); Glucose 81 mg/dL (83-110); Potassium 4.2 mmol/L (3.5-5.1); Protein, Total 5.4 g/dL (6.0-8.3); Sodium 133 mmol/L (136-145)
[2020-07-26] MEDS: Lisinopril 20 MG TAB PO SCH ×2 (08:45→21:03)
[2020-07-26] MEDS: Famotidine 20 MG TAB PO SCH ×2 (08:45→21:03)
[2020-07-26] MEDS: Trospium 20 MG TAB PO SCH ×2 (08:45→21:03)
[2020-07-26] MEDS: Amlodipine 5 MG TAB PO SCH ×2 (08:45→21:03)
[2020-07-26] MEDS: Aspirin 81 mg Enteric Coated Tablet PO SCH (08:45)
[2020-07-26] MEDS: Spironolactone 25 MG TAB PO SCH ×2 (08:45→17:48)
[2020-07-26] MEDS: Carvedilol 3.125 MG TAB PO SCH ×2 (08:46→17:48)
--- NOTE | 2020-07-26 08:57 | PRG ---
DATE OF SERVICE: 07/25/2020 SUBJECTIVE: Ms. Joy is a well-developed, well-nourished, pleasant 89-year-old white female. She became very confused and very weak and was seen in the emergency room and was found to have a urinary tract infection. Stabilized, and then admitted to swing bed for continued physical therapy and occupational therapy. She has been very weak and unable to barely stand. This morning, she only walked 8 feet, then 8 feet, then 10 feet. She was off over the weekend, so it is understandable that she is much weaker. OBJECTIVE: VITAL SIGNS: Today reveal blood pressure this morning 132/58, pulse 58, respirations 18, O2 saturation 99% on room air, T-max 97.7. GENERAL: This is a well-developed, obese white female, in no apparent distress at this time. HEENT: Reveals normocephalic and nontraumatic cranium. Pupils are equally round and reactive. Extraocular movements are intact. Nose and throat are slightly dry. NECK: Supple without masses, nodes, or bruits. CHEST: Clear to auscultation. No rales, rhonchi, wheezes are heard. HEART: Reveals a regular rate and rhythm without murmurs, gallops, or rubs. ABDOMEN: Soft and nontender without organomegaly. Normal bowel sounds are noted. No rebound or guarding is noted. : Deferred. EXTREMITIES: Reveal no clubbing, cyanosis, or edema. NEUROLOGIC: The patient is more confused and upset this morning. She does not know if she has eaten her lunch or not. She thinks her lunch that is half finished on her tray is from yesterday. She does not remember walking this morning with therapy. LABORATORY DATA: Continue to follow her closely and if she does not clear by this afternoon, may repeat urinalysis. ASSESSMENT: 1. Urinary tract infection, resolved. 2. Generalized weakness secondary to urinary tract infection. 3. Hypertension. 4. Hyperlipidemia. 5. Stress incontinence. 6. Memory deficits. 7. Arthritis. 8. Chronic pain. 9. Alzheimer dementia. PLAN: 1. Continue present medications. 2. Repeat urinalysis. 3. Fall precautions. 4. Routine labs. 5. Stress ulcer prophylaxis. 6. Decubitus precautions. 7. Continue PT and OT. Job ID: [id number] [facility]
--- NOTE | 2020-07-26 10:53 | PRG ---
DATE OF SERVICE: 07/26/2020 SUBJECTIVE: Ms. Joy is a well-developed, well-nourished, very pleasant, slightly obese white female. She became very confused at home and was sent to the emergency room. She was found to have urinary tract infection, was given antibiotic, stabilized and then transferred to [facility] for physical therapy and occupational therapy because she was so weak. When she got here, she was unable to stand. She this morning states that she is very weak and very tired. She just wants to get back in bed and sleep. Yesterday, she walked 8 feet, then 8 feet, then 10 feet. She has not walked yet today and Therapy has not seen her yet. She has to be cued for pretty much everything. Our goal is to get her up and walking a little bit better so her daughter could help transfer her and walk her and take care of her. Her daughter has moved in with her to her one-story house in [place]. OBJECTIVE: VITAL SIGNS: Today revealed blood pressure this morning 136/70, pulse 57, respirations 18, O2 saturation 97% on room air, and T-max 98.3. LABORATORY DATA: Yesterday revealed white count 8300 with hemoglobin 14.9, hematocrit 44.9, and a platelet count of 203,000. The patient's sodium was slightly low at 133. Potassium is 4.2. Her creatinine is good at her baseline of 0.89. Sugar was 81. Her albumin is up from 5.0 to 5.4, and her albumin is up from 2.6 to 3.0. Her urine was unremarkable. PHYSICAL EXAMINATION: GENERAL: This is a well-developed, well-nourished, pleasant, slightly obese, but very tired white female. She cannot remember if she slept well last night or not. HEENT: Reveals normocephalic and nontraumatic cranium. Pupils equally round and reactive. Extraocular movements intact. Nose and throat are somewhat dry. NECK: Supple without masses, nodes, or bruits. CHEST: Clear to auscultation. No rales, no rhonchi, no wheezes are heard. No cough is noted. HEART: Reveals a regular rate and rhythm without murmurs, gallops, or rubs. ABDOMEN: Obese, soft, nontender. Normal bowel sounds are noted in all 4 quadrants. No rebound or guarding is noted. : Deferred. EXTREMITIES: Revealed no clubbing, cyanosis, or edema. NEUROLOGIC: The patient remained somewhat confused this morning, but can be directed to do her therapy. She does not remember, what she had to eat for breakfast. She does have a history of dementia. She states she does not remember if she had therapy already this morning. ASSESSMENT: 1. Urinary tract infection, infection resolved. 2. Generalized weakness secondary to urinary tract infection. 3. Hypertension, stable. 4. Hyperlipidemia. 5. Stress incontinence. 6. Memory deficits. 7. Arthritis. 8. Chronic arthritic type pain. 9. Alzheimer dementia. PLAN: 1. Continue present medications. 2. Continue to encourage the patient to eat. She is eating 75% to 100% of her meals and occasionally only 50% of her meals. 3. Urinalysis repeat was unremarkable. 4. Fall precautions. 5. Continue stress ulcer prophylaxis. 6. Decubitus precautions. 7. Continue physical therapy and occupational therapy. Job ID: [id number]
[2020-07-26] MEDS: Donepezil HCl 10 MG TAB PO SCH (21:03)
[2020-07-27] MEDS: Famotidine 20 MG TAB PO SCH ×2 (08:27→20:29)
[2020-07-27] MEDS: Lisinopril 20 MG TAB PO SCH ×2 (08:27→20:29)
[2020-07-27] MEDS: Trospium 20 MG TAB PO SCH ×2 (08:27→20:29)
[2020-07-27] MEDS: Amlodipine 5 MG TAB PO SCH ×2 (08:28→20:29)
[2020-07-27] MEDS: Spironolactone 25 MG TAB PO SCH ×2 (08:28→17:34)
[2020-07-27] MEDS: Carvedilol 3.125 MG TAB PO SCH ×2 (08:28→17:35)
[2020-07-27] MEDS: Aspirin 81 mg Enteric Coated Tablet PO SCH (08:28)
[2020-07-27] MEDS: Donepezil HCl 10 MG TAB PO SCH (20:30)
[2020-07-28] MEDS: Aspirin 81 mg Enteric Coated Tablet PO SCH (08:13)
[2020-07-28] MEDS: Lisinopril 20 MG TAB PO SCH ×2 (08:13→21:08)
[2020-07-28] MEDS: Famotidine 20 MG TAB PO SCH ×2 (08:13→21:07)
[2020-07-28] MEDS: Amlodipine 5 MG TAB PO SCH ×2 (08:14→21:07)
[2020-07-28] MEDS: Carvedilol 3.125 MG TAB PO SCH ×2 (08:14→16:31)
[2020-07-28] MEDS: Trospium 20 MG TAB PO SCH ×2 (08:15→21:07)
[2020-07-28] MEDS: Spironolactone 25 MG TAB PO SCH ×2 (08:15→16:31)
[2020-07-28] MEDS: Acetaminophen 500 MG TAB PO PRN (08:16)
--- NOTE | 2020-07-28 14:48 | PRG ---
DATE OF SERVICE: 07/28/2020 HISTORY OF PRESENT ILLNESS: This is a well-appearing 89-year-old female, here for inpatient physical therapy. Overall doing well again today. She is working well with physical therapy. We did receive a notice from her insurance at her last cover day will be tomorrow, and therefore, she will need to have discharge planning completed by tomorrow. We did consult case management who has found placement for a [facility]; however, the patient's family is considering going to another alf. Therefore, we have submitted documentation to [facility]. We will follow up with this with a plan to discharge tomorrow. The patient continues to receive wound care for the wound on her left buttock. REVIEW OF SYSTEMS: Denies fever, chills, cough, congestion, chest pain, palpitations, nausea, vomiting, or diarrhea. Continues to complain of pain on her bottom at the location of her wound. OBJECTIVE: VITAL SIGNS: Temperature 97.4, pulse 58, blood pressure 132/62, respiratory rate 18, and O2 saturations 99% on room air. GENERAL: A well-appearing, obese 89-year-old female, lying in bed, in no acute distress. NECK: No JVD. No thyromegaly. RESPIRATORY: Clear to auscultation bilaterally. No wheezes or rhonchi. CARDIOVASCULAR: Regular rate and rhythm. No murmurs, gallops, or rubs. ABDOMEN: Soft, nontender to palpation. Bowel sounds positive in all 4 quadrants. NEUROLOGIC: Intact, however, alert and oriented to self only. ASSESSMENT: 1. Urinary tract infection, resolved. 2. Weakness secondary to urinary tract infection. 3. Hypertension, stable. 4. Hyperlipidemia. 5. Stress incontinence. 6. Memory deficit due to Alzheimer's dementia. 7. Osteoarthritis. 8. Coccygeal wound pressure versus moisture. PLAN: 1. Continue current medications. 2. Fall precautions. 3. Continue stress ulcer prophylaxis. 4. Decubitus precautions. 5. Continue wound care to coccygeal wound. 6. Discharge planning: The patient was originally accepted by [facility]; however, the patient would like to possibly switch to [facility]. We have submitted claims to [facility] and will follow up with those. 7. Plan for discharge tomorrow. The patient's family did appeal for more days on her hospital stay. We will follow-up with as well. Job ID: [id number] [facility]
--- NOTE | 2020-07-28 15:04 | PRG ---
DATE OF SERVICE: 07/27/2020 SUBJECTIVE: The patient is well appearing 89-year-old female here for inpatient PT and OT services. The patient is doing well. Overall, she is participating well in therapy. Does have mild incontinence, which is contributing to a moisture wound on her buttock. Nursing staff is taking care of wound care for this. Overall doing well. REVIEW OF SYSTEMS: Denies fever, chills, constipation, nausea, vomiting, chest pain, palpitations, or edema. Does report pain on her buttock where the moisture wound is located. OBJECTIVE: VITAL SIGNS: Temperature 97.8, pulse 56 to 58, blood pressure 132/68 to 134/63, respiratory rate 18, O2 saturations 99% on room air. GENERAL: Well-appearing, obese 89-year-old female, lying in bed, in no acute distress. NECK: No JVD. No thyromegaly. RESPIRATORY: Clear to auscultation bilaterally. No wheezes. CARDIOVASCULAR: Regular rate and rhythm. No murmurs. EXTREMITIES: Ulcers seen on right buttock with irritation and erythema. No discharge or draining. No sinus tracts. ASSESSMENT: 1. Urinary tract infection, resolved. 2. Generalized weakness secondary to urinary tract infection. 3. Hypertension, stable. 4. Hyperlipidemia. 5. Stress incontinence. 6. Dementia. 7. Coccygeal wound, pressure versus moisture. PLAN: 1. Continue current medications. Continue to encourage the patient to eat. She is only eating about 50% of her meals. 2. Repeat UA, unremarkable. 3. Fall precautions. 4. Decubitus precautions. 5. Continue wound care for coccygeal wound and irritation under the patient's breast. 6. Continue stress ulcer prophylaxis. 7. Continue DVT prophylaxis. 8. Continue PT/OT services. Job ID: [id number]
[2020-07-28] MEDS: Donepezil HCl 10 MG TAB PO SCH (21:07)
[2020-07-29] MEDS: Trospium 20 MG TAB PO SCH ×2 (08:12→21:16)
[2020-07-29] MEDS: Spironolactone 25 MG TAB PO SCH ×2 (08:12→17:22)
[2020-07-29] MEDS: Lisinopril 20 MG TAB PO SCH ×2 (08:12→21:16)
[2020-07-29] MEDS: Famotidine 20 MG TAB PO SCH ×2 (08:12→21:16)
[2020-07-29] MEDS: Aspirin 81 mg Enteric Coated Tablet PO SCH (08:13)
[2020-07-29] MEDS: Amlodipine 5 MG TAB PO SCH ×2 (08:13→21:16)
[2020-07-29] MEDS: Carvedilol 3.125 MG TAB PO SCH ×2 (08:13→17:22)
[2020-07-29] MEDS: Donepezil HCl 10 MG TAB PO SCH (21:15)
[2020-07-30] MEDS: Carvedilol 3.125 MG TAB PO SCH ×2 (08:35→17:43)
[2020-07-30] MEDS: Amlodipine 5 MG TAB PO SCH ×2 (08:35→20:35)
[2020-07-30] MEDS: Spironolactone 25 MG TAB PO SCH ×2 (08:35→17:43)
[2020-07-30] MEDS: Lisinopril 20 MG TAB PO SCH ×2 (08:36→20:34)
[2020-07-30] MEDS: Trospium 20 MG TAB PO SCH ×2 (08:36→20:34)
[2020-07-30] MEDS: Famotidine 20 MG TAB PO SCH ×2 (08:36→20:35)
[2020-07-30] MEDS: Aspirin 81 mg Enteric Coated Tablet PO SCH (08:36)
[2020-07-30] MEDS: Acetaminophen 500 MG TAB PO PRN (20:33)
[2020-07-30] MEDS: Donepezil HCl 10 MG TAB PO SCH (20:34)
--- NOTE | 2020-07-31 06:46 | PRG ---
DATE OF SERVICE: 07/30/2020 This is a patient of Dr. Margarito Olivas. SUBJECTIVE: The patient is sitting up in a chair, no distress, slightly confused, chronic dementia, asking why she is here. She denies any chest pain, shortness of breath, weakness. OBJECTIVE: VITAL SIGNS: Shows her temperature is 97.2, pulse 62, respirations 16, O2 sats 98% on room air, blood pressure 134/61. LUNGS: Clear. CARDIAC: Shows regular rhythm. ABDOMEN: Soft and nontender. SKIN/EXTREMITIES: Show no edema. NEUROLOGICAL: Shows no focal findings. ASSESSMENT: 1. Resolving urinary tract infection. 2. Improving weakness. 3. Stable dementia. 4. Hypertension, controlled to goal. PLAN: 1. Continue PT/OT. 2. Continue stress ulcer prophylaxis. 3. Continue wound care monitoring of stage 1-2 ulcer on buttock. Job ID: [id number]
[2020-07-31] MEDS: Carvedilol 3.125 MG TAB PO SCH ×2 (08:13→17:37)
[2020-07-31] MEDS: Spironolactone 25 MG TAB PO SCH ×2 (08:13→17:37)
[2020-07-31] MEDS: Aspirin 81 mg Enteric Coated Tablet PO SCH (08:14)
[2020-07-31] MEDS: Amlodipine 5 MG TAB PO SCH ×2 (08:14→20:28)
[2020-07-31] MEDS: Famotidine 20 MG TAB PO SCH ×2 (08:14→20:26)
[2020-07-31] MEDS: Lisinopril 20 MG TAB PO SCH ×2 (08:15→20:27)
[2020-07-31] MEDS: Trospium 20 MG TAB PO SCH ×2 (08:15→20:26)
[2020-07-31] MEDS: Donepezil HCl 10 MG TAB PO SCH (20:28)
--- NOTE | 2020-08-01 07:16 | PRG ---
DATE OF SERVICE: 07/31/2020 SUBJECTIVE: The patient is lying in bed, resting after supper. No complaints. She is still asking why she is here. OBJECTIVE: VITAL SIGNS: Shows pulse 54, blood pressure 108/58, O2 saturations 98% on room air. LUNGS: Clear. CARDIAC: Regular rate and rhythm. No gallops or murmurs. ABDOMEN: Soft and nontender. ASSESSMENT: 1. Urinary tract infection, resolved with delirium superimposed on chronic dementia. 2. Chronic dementia, persistent. 3. Generalized weakness and deconditioning, improving greatly. 4. Hypertension, stable. PLAN: Continue PT, OT. Continue to stress oral intake. Continue stress ulcer prophylaxis. Continue wound care of coccyx wound. Job ID: [id number]
[2020-08-01] MEDS: Acetaminophen 500 MG TAB PO PRN (08:08)
[2020-08-01] MEDS: Lisinopril 20 MG TAB PO SCH ×2 (08:10→20:50)
[2020-08-01] MEDS: Spironolactone 25 MG TAB PO SCH ×2 (08:10→17:19)
[2020-08-01] MEDS: Aspirin 81 mg Enteric Coated Tablet PO SCH (08:11)
[2020-08-01] MEDS: Amlodipine 5 MG TAB PO SCH ×2 (08:11→20:51)
[2020-08-01] MEDS: Famotidine 20 MG TAB PO SCH ×2 (08:11→20:51)
[2020-08-01] MEDS: Trospium 20 MG TAB PO SCH ×2 (08:11→20:51)
[2020-08-01] MEDS: Carvedilol 3.125 MG TAB PO SCH ×2 (08:12→17:20)
--- NOTE | 2020-08-01 14:07 | PRG ---
DATE OF SERVICE: 08/01/2020 SUBJECTIVE: An 89-year-old female, here for inpatient physical therapy. The patient's insurance days were exhausted on Saturday, however, the patient's family has been going back and forth between [facility] terms of discharge planning as well as a question of if their appeal was upheld or rejected. The latest that I heard the appeal was rejected and the patient's family needed to cancel the appeal, so that Case Management could work on the paperwork to get the patient to a residential. At this time, we are still waiting on the family to make a decision on which residential to pursue, and therefore, we will continue to wait for family. OBJECTIVE: VITAL SIGNS: Temperature 97.4, pulse 53 to 57, respiratory rate 16, O2 saturations 98% on room air, blood pressure 114/54 to 120/57. GENERAL: Well-appearing obese 89-year-old female, lying in bed, in no acute distress. NECK: No thyromegaly. No JVD. CHEST: Clear to auscultation bilaterally. CARDIOVASCULAR: Regular rate and rhythm. No murmurs, gallops, or rubs. ABDOMEN: Soft, nontender to palpation. Bowel sounds positive in all 4 quadrants. ASSESSMENT: 1. Urinary tract infection, resolved. 2. Chronic dementia. 3. Generalized weakness and deconditioning, improving. 4. Hypertension. PLAN: 1. Continue PT/OT for now. We will need to follow up with the patient's family in terms of discharge planning. Once the discharge planning is complete and we have an accepting facility, we will discharge the patient there. 2. Continue current medications. 3. Continue wound care on the coccyx wound. Job ID: [id number]
[2020-08-01] MEDS: Donepezil HCl 10 MG TAB PO SCH (20:51)
[2020-08-02] MEDS: Carvedilol 3.125 MG TAB PO SCH (09:17)
[2020-08-02] MEDS: Acetaminophen 500 MG TAB PO PRN (09:17)
[2020-08-02] MEDS: Lisinopril 20 MG TAB PO SCH ×3 (09:18→21:08)
[2020-08-02] MEDS: Famotidine 20 MG TAB PO SCH ×2 (09:19→20:48)
[2020-08-02] MEDS: Trospium 20 MG TAB PO SCH ×2 (09:19→20:49)
[2020-08-02] MEDS: Amlodipine 5 MG TAB PO SCH ×2 (09:19→10:19)
[2020-08-02] MEDS: Spironolactone 25 MG TAB PO SCH ×3 (09:20→17:10)
[2020-08-02] MEDS: Aspirin 81 mg Enteric Coated Tablet PO SCH (09:20)
[2020-08-02 09:53] VITALS: BMI 34.4
[2020-08-02 10:39] LABS: Hemoglobin 15.7 g/dL (12.0-16.0); Mean Corpuscular HGB CONC 34.2 g/dL (32.0-36.0); Mean Corpuscular Hemoglobin 31.9 pg (27.0-31.0); Mean Corpuscular Volume 93.4 fL (78.0-98.0); Mean Platelet Volume 8.7 fL (7.4-10.4); Platelet Count 264 thou/uL (130-400); RBC Distribution Width 12.5 % (11.5-14.5); White Blood Cell (WBC) Count 8.8 thou/uL (4.8-10.8)
[2020-08-02 10:44] LABS: #Lymphocytes 1.5 thou/uL (1.20-3.40); #Monocytes 1.7 thou/uL (0.11-0.59); #Neutrophils 5.2 thou/uL (1.40-6.50); %Basophils 0.9 % (0.0-1.0); %Lymphocytes 17.1 % (21.0-51.0); %Monocytes 19.6 % (0.0-10.0); %Neutrophils 59.5 % (42.0-75.0); Anion Gap 17 mmol/L (10-20); BUN (Urea Nitrogen) 28 mg/dL (9.8-20.1); Calc. Creatinine Clearance 39 mL/min (70-130); Carbon Dioxide 17 mmol/L (23-31); Chloride 104 mmol/L (98-107); Glucose 120 mg/dL (83-110); Potassium 4.7 mmol/L (3.5-5.1); Sodium 133 mmol/L (136-145)
[2020-08-02 10:45] LABS: #Basophils 0.1 thou/uL (0.0-0.2); #Eosinphils 0.3 thou/uL (0.0-0.7); Manual Diff?? NO
[2020-08-02] MEDS: Donepezil HCl 10 MG TAB PO SCH (20:48)
[2020-08-03] MEDS: Spironolactone 25 MG TAB PO SCH ×2 (08:48→17:41)
[2020-08-03] MEDS: Lisinopril 20 MG TAB PO SCH ×2 (08:48→20:49)
[2020-08-03] MEDS: Aspirin 81 mg Enteric Coated Tablet PO SCH (08:48)
[2020-08-03] MEDS: Famotidine 20 MG TAB PO SCH ×2 (08:49→20:50)
[2020-08-03] MEDS: Trospium 20 MG TAB PO SCH ×2 (08:49→20:50)
[2020-08-03] MEDS: Amlodipine 5 MG TAB PO SCH (08:49)
--- NOTE | 2020-08-03 13:01 | PRG ---
DATE OF SERVICE: 08/02/2020 SUBJECTIVE: The patient had an episode of bradycardia this morning. She went down to the 30s for her heart rate. This lasted for approximately an hour, and the patient's heart rate came back up to 57 to 63. Blood pressure was unremarkable at this time. EKG was taken, which was unremarkable except for some slight T-wave inversion in V1 and V2. Troponin was low at 0.018. CMP and CBC unremarkable. The patient denied any chest pain at that time. The patient does have a history of AFib, and she is on carvedilol b.i.d. for this as well as being on Norvasc 10 mg. Coreg was held and Norvasc was held as well. Coreg was discontinued, and we will continue to monitor her heart rate. The patient is asymptomatic at this time, doing well, and back to baseline. REVIEW OF SYSTEMS: Denies any cough, congestion, fever, chills, chest pain, nausea, vomiting, diarrhea. PHYSICAL EXAMINATION: VITAL SIGNS: As stated above, heart rate 32 to 63, temperature 97.5, respiratory rate 18 to 20, O2 sats 99% on room air, blood pressure 101/51 to 150/67. GENERAL: Well-appearing 89-year-old female lying in bed, in no respiratory distress. NECK: No JVD. No thyromegaly. HEART: Regular rate and rhythm. No murmurs, gallops, or rubs. RESPIRATORY: Clear to auscultation bilaterally. No wheezes or rhonchi. ABDOMEN: Soft, nontender to palpation. Bowel sounds positive in all four quadrants. EXTREMITIES: The patient with a healing coccygeal wound. ASSESSMENT: 1. Urinary tract infection, resolved. 2. Altered mental status secondary to urinary tract infection, resolved. The patient is back at baseline of dementia. 3. Dementia. 4. Generalized weakness and deconditioning, improving. 5. Hypertension. PLAN: 1. Continue PT and OT for now. The patient's family plans to have the patient go to [facility]. We will continue with this discharge planning. 2. Continue current medications with the exception of Coreg. 3. Continue wound care on coccygeal wound. 4. Follow up with insurance regarding placement. Planned date of discharge 08/05/2020. Job ID: [id number]
--- NOTE | 2020-08-03 13:09 | PRG ---
DATE OF SERVICE: 08/03/2020 SUBJECTIVE: This is an 89-year-old female, here for inpatient physical therapy. Yesterday, she had an episode of bradycardia. However, with her Coreg being stopped, she has not had any bradycardic episodes. She remains at her baseline of 50 to 60 beats per minute. The patient is doing well. Participating well with therapy. She is having a good appetite. However, she remains incontinent and requiring care with bowel and bladder. REVIEW OF SYSTEMS: Denies any fever, cough, chills, congestion, chest pain, palpitations, nausea, vomiting, diarrhea, constipation. OBJECTIVE: VITAL SIGNS: Today, temperature 96.3, pulse 61 to 66, blood pressure 141/67, respiratory rate 18, O2 sats 97% on room air. Blood pressure ranging 126/62 to 139/63. LABORATORY DATA: White cells 8.8, hemoglobin 15.7, hematocrit 45.8, platelets 264. Sodium 133, potassium 4.7, CO2 of 17, BUN 28, creatinine 1.54, glucose 120, creatine kinase 17. Troponin 0.019 from yesterday. ASSESSMENT: 1. Urinary tract infection, resolved. 2. Chronic dementia. 3. Generalized weakness and deconditioning, improving. 4. Hypertension. PLAN: 1. Continue PT and OT for now. We will need to follow up with insurance for discharge planning. 2. Continue current medications. 3. Continue wound care on the coccygeal wound. Job ID: [id number]
[2020-08-03] MEDS: Donepezil HCl 10 MG TAB PO SCH (20:49)
[2020-08-04] MEDS: Lisinopril 20 MG TAB PO SCH ×2 (08:39→21:22)
[2020-08-04] MEDS: Spironolactone 25 MG TAB PO SCH ×2 (08:39→17:27)
[2020-08-04] MEDS: Aspirin 81 mg Enteric Coated Tablet PO SCH (08:40)
[2020-08-04] MEDS: Trospium 20 MG TAB PO SCH ×2 (08:40→21:22)
[2020-08-04] MEDS: Amlodipine 5 MG TAB PO SCH (08:40)
[2020-08-04] MEDS: Famotidine 20 MG TAB PO SCH ×2 (08:40→21:22)
--- NOTE | 2020-08-04 16:21 | PRG ---
DATE OF SERVICE: 08/04/2020 SUBJECTIVE: This is an 89-year-old female with date of 1930. The patient is doing about the same as yesterday. She again states that she is tired during physical therapy. However, she is participating well in PT. The patient has no complaints today. REVIEW OF SYSTEMS: Denies any fever, chills, cough, congestion, chest pain, palpitations, nausea, vomiting, or diarrhea. OBJECTIVE: VITAL SIGNS: Temperature 97.1, pulse 64 to 70, blood pressure range 115/55 to 170/78. NECK: No JVD. No thyromegaly. CHEST: Clear to auscultation bilaterally. No wheezes or rhonchi. HEART: Regular rate and rhythm. No murmurs, gallops, or rubs. We will start hydrochlorothiazide 25 mg daily tomorrow as the patient is already on Norvasc 10, lisinopril 20 b.i.d., spironolactone 25 b.i.d. LABORATORY DATA: No new labs today. ASSESSMENT: 1. Urinary tract infection, resolved. 2. Chronic dementia. 3. Generalized weakness and deconditioning, improving. 4. Hypertension. PLAN: 1. Continue PT and OT services. The patient's family is filing for an appeal to the insurance company for further PT services. We will follow up with the patient's family about this. I feel that patient may still improve with continued PT as well. 2. Continue current medications. 3. Start hydrochlorothiazide 25 mg in the morning. 4. Continue wound care. 5. Follow up on vital signs including blood pressure. Job ID: [id number] [facility]
[2020-08-04] MEDS: Donepezil HCl 10 MG TAB PO SCH (21:22)
[2020-08-05 07:40] VITALS: TEMP 98.1
[2020-08-05] MEDS: Aspirin 81 mg Enteric Coated Tablet PO SCH (08:55)
[2020-08-05] MEDS: Lisinopril 20 MG TAB PO SCH (08:55)
[2020-08-05] MEDS: Spironolactone 25 MG TAB PO SCH ×2 (08:56→16:23)
[2020-08-05] MEDS: Amlodipine 5 MG TAB PO SCH (08:56)
[2020-08-05] MEDS: Famotidine 20 MG TAB PO SCH (08:56)
[2020-08-05] MEDS ORDERED: Hydrochlorothiazide 25 MG TAB PO SCH (09:00)
[2020-08-05] MEDS: Trospium 20 MG TAB PO SCH (09:03)
[2020-08-05] MEDS: Acetaminophen 500 MG TAB PO PRN (09:03)
[2020-08-05 13:28] VITALS: BP 113/55
== END 2020-08-05 17:30 | DRG 690 ==
LOC: NAV ACUTE 12:28
PROVIDERS: ADMIT Family Medicine; ATTEND Family Medicine
DX: N39.0 Urinary tract infection, site not specified (principal); N17.9 Acute kidney failure, unspecified; F05 Delirium due to known physiological condition; M19.90 Unspecified osteoarthritis, unspecified site; L30.4 Erythema intertrigo; I48.91 Unspecified atrial fibrillation; N32.81 Overactive bladder; R79.89 Other specified abnormal findings of blood chemistry; E66.9 Obesity, unspecified; I10 Essential (primary) hypertension; R21 Rash and other nonspecific skin eruption; R53.81 Other malaise; Z79.899 Other long term (current) drug therapy; Z79.82 Long term (current) use of aspirin; Z90.49 Acquired absence of other specified parts of digestive tract; Z68.34 Body mass index [BMI] 34.0-34.9, adult; G89.29 Other chronic pain; G30.9 Alzheimer's disease, unspecified; F02.80 Dementia in other diseases classified elsewhere, unspecified severity, without behavioral disturbance, psychotic disturbance, mood disturbance, and anxiety; N39.3 Stress incontinence (female) (male); R41.3 Other amnesia; E78.5 Hyperlipidemia, unspecified; Z91.013 Allergy to seafood
CPT/HCPCS: 36415; 80048; 80053; 81001; 82550; 85025; 87086; 90471; 90662; G0008

== ENCOUNTER 2020-08-10 17:05 | Emergency (ER) | payer MEDICARE ==
[2020-08-10 18:15] LABS: Hemoglobin 17.5 g/dL (12.0-16.0); Mean Corpuscular HGB CONC 33.5 g/dL (32.0-36.0); Mean Corpuscular Hemoglobin 30.8 pg (27.0-31.0); Mean Corpuscular Volume 91.7 fL (78.0-98.0); Mean Platelet Volume 9.6 fL (7.4-10.4); Platelet Count 186 thou/uL (130-400); RBC Distribution Width 12.3 % (11.5-14.5); Red Blood Cell (RBC) Count 5.69 mill/uL (4.20-5.40); White Blood Cell (WBC) Count 8.4 thou/uL (4.8-10.8)
[2020-08-10 18:26] LABS: ALT (SGPT) 49 U/L (8-55); AST (SGOT) 45 U/L (5-34); Albumin 3.9 g/dL (3.4-4.8); Alkaline Phosphatase 122 U/L (40-110); Anion Gap 20 mmol/L (10-20); BUN (Urea Nitrogen) 36 mg/dL (9.8-20.1); Bilirubin, Total 1.1 mg/dL (0.2-1.2); CK (CPK) 14 U/L (29-168); Calc. Creatinine Clearance 0 mL/min (70-130); Calcium 9.8 mg/dL (7.8-10.44); Carbon Dioxide 18 mmol/L (23-31); Chloride 100 mmol/L (98-107); Glucose 106 mg/dL (83-110); Potassium 4.4 mmol/L (3.5-5.1); Protein, Total 6.9 g/dL (6.0-8.3); Sodium 134 mmol/L (136-145)
--- NOTE | 2020-08-10 18:26 | CT ---
Head CT without contrast 08/10/2020: COMPARISON: 07/07/2020 HISTORY: Altered mental status, decreased responsiveness, fatigue TECHNIQUE: Axial CT imaging at 5 mm intervals from vertex through skull base without contrast FINDINGS: The visualized paranasal sinuses and mastoid air cells are well-aerated. No displaced jay rial fracture. Stable cerebral volume loss and stable white matter hypodensity suggesting small vessel disease. No intracranial hemorrhage, midline shift, or mass effect. IMPRESSION: Stable head CT as above. No intracranial hemorrhage.
[2020-08-10 18:38] LABS: Band 1 % (5-11); Lymphocytes 27 % (21-51); MDiff Complete? YES; Monocytes 5 % (0-10); Neutrophil 63 % (42-75); Platelet Morphology Comment Appears Adequate; RBC Morphology Normal; Reactive Lymphocytes 4 % (0-10)
[2020-08-10 18:40] LABS: CKMB 0.8 ng/mL (0-6.6)
--- NOTE | 2020-08-10 19:09 | RAD ---
CHEST ONE VIEW: 08/10/20 INDICATIONS: History of altered mental status. COMPARISON: Prior exam dated 07/07/20. FINDINGS: Chronic increased interstitial markings are stable. Heart size is within normal limits. No consolidat ion, pleural effusion or pneumothorax is evident. No acute osseous abnormality is noted. IMPRESSION: No acute abnormality. POS: BH
[2020-08-10 19:30] LABS: Bilirubin Small (Negative); Blood, Urine Negative (Negative); Clarity Clear (Clear); Glucose, Urine (Dipstick) Negative (Negative); Ketone, Urine Negative (Negative); Leukocyte Negative (Negative); Nitrite Negative (Negative); Protein, Urine (Dipstick) Negative (Neg-Trace); Urobilinogen 0.2 mg/dL (Less than 2); pH, Urine 5.5 (5.0-9.0)
[2020-08-10] MEDS ORDERED: cefTRIAXone\\ROCEPHIN 1 GM VIAL ONE (19:35)
[2020-08-10] MEDS ORDERED: Sodium Chloride 0.9% 1,000 ML ONE (19:35)
[2020-08-10] MEDS ORDERED: Sodium Chloride 0.9% 100 ML ONE ×3 (19:36→20:30)
== END 2020-08-10 22:45 | disposition short-term general hospital (02) ==
LOC: NAV ERS 17:05
DX: E86.0 Dehydration (principal); R62.7 Adult failure to thrive; R41.82 Altered mental status, unspecified; B02.9 Zoster without complications; E78.5 Hyperlipidemia, unspecified; M19.90 Unspecified osteoarthritis, unspecified site; G30.9 Alzheimer's disease, unspecified; I10 Essential (primary) hypertension; Z79.899 Other long term (current) drug therapy; Z79.82 Long term (current) use of aspirin
CPT/HCPCS: 51701; 70450; 71045; 80053; 81003; 82550; 82553; 83605; 83880; 84484; 85025; 87040; 87077; 87086; 87149; 93005; 94760; 96365; J0696; J3490; J7050